=== PATIENT | male | born 1995 | race Hispanic/Latino ===

== ENCOUNTER 2025-07-19 22:16 | Emergency (ER) | payer BC ==
[~2025-07-19] VITALS: Ht 167.6 cm; Wt 77.1 kg
[2025-07-19 22:39] VITALS: TEMP 98.9
[2025-07-19 23:40] LABS: LEUKOCYTE ESTERASE ,URINE NEGATIVE (NEGATIVE); PROTEIN,URINE DIPSTICK NEGATIVE (NEGATIVE); URINE UROBILINOGEN 0.2 mg/dL (0.2 - 1)
[2025-07-19 23:51] LABS: WBC,URINE (MAN) 0-5 /HPF (0-5)
[2025-07-19 23:54] LABS: CORONAVIRUS COVID-19 AG NEGATIVE (NEGATIVE); INFLUENZA A NAA NEGATIVE (NEGATIVE); INFLUENZA B NAA NEGATIVE (NEGATIVE)
[2025-07-20 00:30] VITALS: PULSE 67; RESP 15
[2025-07-20 01:27] VITALS: BP 102/63; O2SAT 100
== END 2025-07-20 00:45 | disposition home or self-care (01) ==
LOC: ER 23:15
DX: K52.9 Noninfective gastroenteritis and colitis, unspecified (principal); R11.0 Nausea; Z11.52 Encounter for screening for COVID-19
CPT/HCPCS: 81001; 99284